=== PATIENT | male | born 1990 | race Caucasian/White ===

== ENCOUNTER → 2016-10-25 | Outpatient (CLI) | payer OTHER ==
[~2016-10-25] MED LIST: ATR25 PO; ZLF50 PO
--- NOTE | 2016-10-25 11:13 | DIAGNOSTIC IMAGING REPORT ---
LEFT GROIN ULTRASOUND HISTORY: Left groin mass. Possible lymph nodes.. COMPARISON: None. FINDINGS: Sonography of the left groin revealed several mildly enlarged left inguinal lymph nodes. An index node measured 2 x 0.7 x 1.6 cm. The cortex is thickened. There is no definite fatty hilum. These are slightly larger when compared to right inguinal lymph nodes IMPRESSION: Several mildly enlarged left inguinal lymph nodes, including an index 2 x 0.7 x 1.6 cm lymph node with thickened cortex and no definite fatty hilum. These nodes are nonspecific and may be reactive. However, if these remain palpable, ultrasound guided fine needle aspiration is recommended to exclude the possibility of a neoplastic process. Electronically signed by: Aquiles Del Valle M.D. 10/25/2016 11:11 AM Dictated Date/Time: 10/25/2016 11:09 AM
[2016-10-25 12:17] LABS: BASO % 0.7 %; BASO ABS # 0.05 K/uL (0-0.2); COMPLETE YES; HEMATOCRIT 43.7 % (42-52); IG% 0.3 %; LYMPH % 13.5 %; LYMPH ABS # 0.95 K/uL (1.2-3.4); MEAN CELL VOLUME 94.4 fL (80-100); MEAN CORPUSCULAR HGB CONC 33.9 g/dl (32-36); MEAN PLATELET VOLUME 11.8 fL (7.4-10.4); MONO % 12.4 %; NEUT % 71.1 %; PLATELET COUNT 188 K/uL (130-400); RED BLOOD COUNT 4.63 M/uL (4.7-6.1); WHITE BLOOD COUNT 7.03 K/uL (4.8-10.8)
[2016-10-25 14:36] LABS: LYME DISEASE AB IGG POS (NEG); LYME DISEASE AB IGM POS (NEG)
[2016-10-31 09:00] LABS: 18KDIGG BAND REACTIVE (NONREACTIVE); 23KDIGG BAND REACTIVE (NONREACTIVE); 23KDIGM BAND REACTIVE (NONREACTIVE); 28KDIGG BAND NONREACTIVE (NONREACTIVE); 30KDIGG BAND NONREACTIVE (NONREACTIVE); 39KDIGG BAND REACTIVE (NONREACTIVE); 39KDIGM BAND REACTIVE (NONREACTIVE); 41KDIGG BAND REACTIVE (NONREACTIVE); 41KDIGM BAND REACTIVE (NONREACTIVE); 45KDIGG BAND REACTIVE (NONREACTIVE); 58KDIGG BAND REACTIVE (NONREACTIVE); 66KDIGG BAND REACTIVE (NONREACTIVE); 93KDIGG BAND REACTIVE (NONREACTIVE)
== END | disposition home or self-care (01) ==
LOC: C.ULTR 10:23
PROVIDERS: ATTEND Surgery
DX: R21 Rash and other nonspecific skin eruption (principal); R19.09 Other intra-abdominal and pelvic swelling, mass and lump; R59.0 Localized enlarged lymph nodes